=== PATIENT | male | born 1945 | race Caucasian/White ===

== ENCOUNTER → 2017-09-12 | Emergency (ER) | payer OTHER ==
[~2017-09-12] VITALS: Ht 177.8 cm; Wt 63.5 kg
[~2017-09-12] MED LIST: CHILDREN'S FLO5.9 ML; OFEV100 MG; SYMBICORT 16010.2 GM
== END | disposition home or self-care (01) ==
LOC: ER 10:05
DX: R19.7 Diarrhea, unspecified (principal)